=== PATIENT | male | born 1945 | race Caucasian/White ===

== ENCOUNTER 2016-10-09 05:40 | Observation (INO) | payer OTHER ==
[~2016-10-09] VITALS: Ht 190.5 cm; Wt 90.7 kg
[2016-10-09] VITALS (7 sets, daily range): BP systolic 152–160; BP diastolic 66–87
--- NOTE | ~2016-10-09 | O ---
[facility] [address] OPERATIVE REPORT Name: ALYSSA DAVE Room #: 536-P [facility] Tera Cardenas#: [id number] Admission: 10/09/16 Attend Phys: Rashard Parrish MD Discharge: 10/10/16 Date of : 41 Report #: [id number] THIS REPORT FOR: //name// CC: Rashard Calderón MD PREOPERATIVE DIAGNOSIS: Symptomatic right inguinal hernia. POSTOPERATIVE DIAGNOSIS: Symptomatic right inguinal hernia, direct in nature; left direct inguinal hernia identified. PROCEDURE PERFORMED: Laparoscopic repair of bilateral inguinal hernia, properitoneal approach. SURGEON: Rashard Parrish M.D. ANESTHESIA: General anesthesia. COMPLICATIONS: None. ESTIMATED BLOOD LOSS: 5 mL. PROCEDURE NOTE: With the patient under general anesthesia, a Morales catheter was placed. IV antibiotic was administered. Abdomen was prepped and draped in sterile fashion. A 0.25% Marcaine was used to anesthetize the skin and subcutaneous tissue and trocar site. A 2 cm incision was made adjacent to the umbilicus on the right side. The anterior rectus sheath was identified. The anterior sheath was then incised transversely. The muscle was spread. The posterior sheath was then palpated. The space between the muscle and the posterior sheath was dissected bluntly inferiorly. Properitoneal space was freed with a finger. An Origin balloon trocar was then placed. CO2 was placed. I could see below the trocar, the properitoneal space and a 5 mm trocar was placed into the space. This is about 2 inches below the umbilicus. With this and cautery dissection I was able to free the rest of the properitoneal space. The inferior epigastric vessel was identified and preserved from harm. The dissection was carried to the pubic tubercle. The lateral wall on the right side was also free and a second 5 mm trocar was placed over here. The trocar was placed under visualization. Dissection was then carried out on the right side and patient had a direct defect. I then went ahead and worked on the left side since the right side had a direct defect. The left side to me did seem to have a fat that is attached to the Hesselbach triangle, which were reduced and there was a definite defect, medial to the internal ring and there is really no internal ring lateral to the epigastric vessel. The whole floor in this area was gone. This is consistent with a direct defect. No indirect sac was found going up into the cord. On the right side, dissection was then further carried out and there is a ____ direct defect, a small cord lipoma. [facility] [address] [place] [address] OPERATIVE REPORT Name: ALYSSA DAVE Room #: 536-P [facility] Tera MAkshat#: [id number] Admission: 10/09/16 Attend Phys: Rashard Parrish MD Discharge: 10/10/16 Date of : 41 Report #: [id number] reflection was identified over the cord structure and did not reduce the indirect hernia sac. The peritoneal reflection was further brought posteriorly. Both direct defect was dissected and cleaned out well. 3DMax lightweight mesh was then placed on the left. This was placed in the balloon through the Origin trocar, opened in the properitoneal space. Once this was opened and seated, this was tacked with SorbaFix. The mesh was tacked laterally to the wall, inferiorly to Blair's ligament, medially to Blair's ligament, and superiorly, medially to the rectus muscle. A right-sided large mesh was also used. This was opened up well to a slight overlap. This was tacked with SorbaFix also. There was some pneumoperitoneum and after the trocars were removed, air was evacuated from the properitoneal space. At the level of the umbilicus, the posterior sheath was identified, grasped with hemostat and peritoneum was opened releasing the pneumoperitoneum. A single 0 Vicryl [id number] stitch was placed in the posterior sheath closing it. The anterior sheath was then closed with [id number] 0 Vicryl x 2. Skin was irrigated and then closed with 5-0 PDS. Steri-Strip, Band-Aids applied. Moraels catheter was removed. The patient taken to recovery room. The patient tolerated procedure well. By: [id number] Rashard Parrish MD /nt
--- NOTE | ~2016-10-09 | EKG ---
[address] [address] ELECTROCARDIOGRAM REPORT Name: ALYSSA DAVE Room #: 536[facility]P [facility]#: [id number] Admission: 10/09/16 Attend Phys: Rashard Parrish MD Discharge: Date of : 41 Report #: [id number] THIS REPORT FOR: //name// 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 : 1945 Requested By: Rashard Parrish Order Number: [id number] MD: Ronnie Tidwell Measurements Intervals [place] Rate: 60 P: 52 MA: 216 QRS: -17 QRSD: 110 T: -6 QT: 443 QTc: 443 Interpretive Statements Sinus rhythm Borderline prolonged MA interval Consider left atrial enlargement Inferior infarct, old No previous ECG available for comparison Electronically Signed On 10-09-2016 18:19:11 CDT by Ronnie Tidwell [email or web address] <ELECTRONICALLY SIGNED> By: Ronnie Tidwell MD 10/09/16 1819 0751 0751 Ronnie Tidwell MD /NARDA
[~2016-10-09 05:40] MED LIST: ASPIR 8181 MG PO; ASPIRIN325 PO; ATORVASTATIN CA80 MG PO; B COMPLEX1 EACH PO; CALCIUM 500 +1 EAC5 PO; CENTRUM SILVER1 EAC2 PO; CINNAMON500 MG PO; HYDROCODONE-AP1 EAC6 PO; MAGNESIUM OXID400 MG PO; PLAVIX 75 MG TA75 M1 PO; TOPROL XL25 MG PO; TURMERIC500 M1 PO; VITAMIN D1000 UNI1 PO; VITAMINC500 PO
[2016-10-09 07:50] LABS: HEMATOCRIT 43.1 % (42.0-52.0)
[2016-10-10 04:44] VITALS: BP 127/57
[2016-10-10 08:20] VITALS: BP 121/49
[2016-10-10] MEDS ORDERED: PERCOCET 10-321 EACH PO (13:45)
[2016-10-10 13:58] VITALS: BP 121/49
== END 2016-10-10 14:30 | disposition home or self-care (01) ==
LOC: OR 05:40 → TBA 05:41 → OR 11:20 → 5S 12:47 → OR 13:05 → 5S 10-10 14:30
PROVIDERS: Surgery
DX: K40.20 Bilateral inguinal hernia, without obstruction or gangrene, not specified as recurrent (principal)
CPT/HCPCS: 50010; 50101; 50411; 50507; 50555; 50848; 53065; 53307; 56525; 56526; 62110; 62900; 70005

== ENCOUNTER 2018-01-06 15:55 | Inpatient (IN) | payer OTHER ==
[~2018-01-06] VITALS: Ht 190.5 cm; Wt 95.3 kg
--- NOTE | ~2018-01-06 | CATHLAB ---
[facility] [address] [place] [address] INVASIVE PROCEDURE REPORT Name: ALYSSA DAVE Room #: 349-I [facility] IN [facility]#: [id number] Admission: 01/06/18 Attend Phys: Henran Amato Discharge: Date of : 41 Date of Service: 01/07/18919 Report #: [id number] THIS REPORT FOR: //name// APPROVED REPORT Study performed: 01/07/2018 08:06:24 Patient Details Patient Status: In-Patient Room #: The patient is a 72 year-old male Event Personnel Edi Schwartz Plate Embosser, Flor Gates RN RN, Sunita Dickey RTR, Cassius Wilson David Monitor Procedures Performed Left Heart Cath Coronaries, Bypass Grafts [id number] [facility] Indication Chest pain Procedure Narrative The patient was brought urgently to the Cardiac Catheterization Laboratory and was prepped and draped in a sterile manner. The Right Groin^ was infiltrated with 1% Lidocaine subcutaneous anesthesia. A PINNACLE 6FR Sheath #[id number] sheath was inserted into the RFA^. Coronary angiography was performed using coronary diagnostic catheters. The right coronary system was accessed and visualized with a JR4 catheter. The left coronary system was accessed and visualized with a JL4 catheter. The left ventricle was accessed and visualized with a PIGTAIL catheter. Left ventricular/Aortic Valve gradient assessed via catheter pullback. Left ventriculogram was performed in 30 degree projection. Closure device was deployed with a 6 Fr MYNXGRIP 6/7F #[id number]. The patient tolerated the procedure well and there were no complications associated with the procedure. There was no hematoma. Intraoperative Conscious Sedation Sedation start time: 8.23 Case end Time: 8.49 Fentanyl 50 mcg Versed 1 mg Fluoro Time: 5.53 minutes Dose: DAP 7008. cGycm2 874 mGy [facility] [place] [address] INVASIVE PROCEDURE REPORT Name: ALYSSA DAVE Room #: 349-I [facility]#: [id number] Admission: 01/06/18 Attend Phys: Hernan Amato Discharge: Date of : 41 Date of Service: 01/07/18919 Report #: [id number] Contrast Type and Amount: Omnipaque 245 ml Coronary Angiography The patient's coronary anatomy is right dominant. [place] Artery Percent Stenosis Grafts (Complete if Previous CABG=Yes: Percent Stenosis) Saphenous vein graft to a large diagonal branch. Normal proximal and distal anastomotic sites with excellent runoff into a large vessel Saphenous vein graft to OM1 and OM-2. Minimal plaquing throughout the body of the graft with widely patent proximal and distal anastomotic sites. Mild plaquing within the inaja marginal vessels Saphenous vein graft occluded to the right coronary at its origin, chronically occluded Normal left main anastomosed to the midportion of the LAD with excellent runoff into a large mid to distal LAD Diagnostic Cath Left Main Normal left main LAD Occluded LAD and its midportion. Long, severe variable stenosis before its occlusion. Diagonal 1 Competitive filling was seen from a vein graft to the first diagonal branch Circumflex Mild plaquing in the inaja circumflex OM1 Occluded first marginal branch at its origin Right Coronary The right coronary was dominant and had been previously stented throughout its proximal and mid portions. These stents were widely patent R PDA 40-50% ostial stenosis of the posterior descending. The vessel beyond this was not especially large. RPLV Minimal plaquing in a large posterior lateral branch Left Ventriculography The left ventricle is normal in size with normal contractility. The left ventricular ejection fraction is estimated to be 60-65%. Left ventricular wall motion abnormalities are present. There is no mitral insufficiency. Normal global systolic function with minimal inferior wall hypokinesis. Hemodynamics The aortic pressure is 171/66 mmHg with a mean of 98 mmHg. The left ventricular pressure is 185/3 mmHg with a mean of mmHg. The left ventricular end diastolic pressure is 28 mmHg. Conclusion [facility] [address] [place] [address] INVASIVE PROCEDURE REPORT Name: ALYSSA DAVE Room #: 349-I [facility] IN M.R.#: [id number] Admission: 01/06/18 Attend Phys: Hernan Amato Discharge: Date of : 41 Date of Service: 01/07/18 0920 Report #: [id number] 1. Normal global left ventricular systolic function with minimal inferior wall hypokinesis. Ejection fraction 60-65%. 2. Severe multivessel coronary artery disease. 3. Patent left internal mammary to the LAD 4. Patent saphenous vein graft to OM1 and OM 2 5. Patent vein graft to the first diagonal branch 6. Occluded vein graft to the right coronary. Widely patent inaja right coronary artery proximal and mid vessel stents. Recommendations [facility] Medical Therapy <ELECTRONICALLY SIGNED> By: Edi Schwartz MD, [facility] 01/07/18919 9 9 Edi Schwartz MD, FAC /INF
--- NOTE | ~2018-01-06 | EKG ---
[place] [address] [facility] [place] [address] ELECTROCARDIOGRAM REPORT Name: ALYSSA DAVE Room #: 349-I [facility] IN [facility].#: [id number] Admission: 01/06/18 Attend Phys: Hernan Hughes Discharge: Date of : 43 Report #: [id number] THIS REPORT FOR: //name// 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: [facility] : 1945 Requested By: Patricia Ivy Order Number: [id number] MD: Edi Schwartz Measurements Intervals [place] Rate: 48 P: 34 HI: 238 QRS: 7 QRSD: 120 T: 0 QT: 462 QTc: 413 Interpretive Statements Sinus bradycardia Prolonged HI interval Left ventricular hypertrophy Possible inferior infarct, old Compared to ECG 10/09/2016 07:51:33 Sinus bradycardia is now present Electronically Signed On 01-07-2018 12:53:01 CDT by Edi Schwartz [email or web address] <ELECTRONICALLY SIGNED> By: Edi Schwartz MD, [facility] 01/07/18 1253 1554 1554 Edi Schwartz MD, [facility] /EPI
[~2018-01-06 15:55] MED LIST changes: +PERCOCET 10-321 EACH PO
[2018-01-06 17:08] LABS: HEMATOCRIT 37.2 % (42.0-52.0); HEMOGLOBIN 12.8 gm/dL (14.0-18.0); MCHC 34.5 g/dL (28.0-37.0); MCV 95.7 fL (80.0-100.0); PLATELET COUNT 180 thou/uL (150-400); RBC 3.89 mil/uL (4.50-6.00); RDW 13.3 % (10.5-14.5); WBC 6.3 thou/uL (4.0-11.0)
[2018-01-06 17:12] LABS: ANION GAP 7 mmol/L (7-16); BUN 14 mg/dL (7-18); CALCIUM 8.9 mg/dL (8.5-10.1); CHLORIDE 106 mmol/L (98-107); CO2 25 mmol/L (21-32); GLUCOSE 145 mg/dL (74-106); SODIUM 138 mmol/L (136-145)
[2018-01-06 17:22] LABS: TROPONIN-I < 0.04 ng/mL (<0.06)
[2018-01-06 17:27] LABS: ABSOLUTE NEUTROPHILS 3.3 thou/uL (1.4-8.2)
[2018-01-06 17:28] LABS: ANISOCYTOSIS 1+
[2018-01-06 19:20] VITALS: BP 155/73
[2018-01-06 19:34] VITALS: BP 169/71
[2018-01-06 20:00] VITALS: BP 186/79
[2018-01-06 21:48] VITALS: BP 153/71
[2018-01-06 23:20] VITALS: BP 142/65
[2018-01-07] VITALS (14 sets, daily range): BP systolic 142–174; BP diastolic 71–91
[2018-01-07 05:58] LABS: ALBUMIN 3.4 g/dL (3.4-5.0); ANION GAP 6 mmol/L (7-16); BUN 12 mg/dL (7-18); CALCIUM 8.6 mg/dL (8.5-10.1); CHLORIDE 109 mmol/L (98-107); CO2 25 mmol/L (21-32); CREATININE 0.9 mg/dL (0.7-1.3); GLUCOSE 111 mg/dL (74-106); PHOSPHORUS 3.9 mg/dL (2.5-4.9); POTASSIUM 4.2 mmol/L (3.5-5.1); SODIUM 140 mmol/L (136-145); TROPONIN-I < 0.04 ng/mL (<0.06)
[2018-01-07 08:19] LABS: CHOLESTEROL 93 mg/dL (<200); HDL CHOLESTEROL 33 mg/dL (>40); LDL CHOLESTEROL 43 mg/dL (<100); TC:HDL 2.8 Ratio (Not establshd); TRIGLYCERIDE 85 mg/dL (<150); VLDL 17 mg/dL (<40)
[2018-01-08 00:20] VITALS: BP 139/70
[2018-01-08 03:25] VITALS: BP 152/76
[2018-01-08 06:58] VITALS: BP 142/64
[2018-01-08] MEDS ORDERED: CARAFATE 1 GM TA1 G1 PO (09:42)
[2018-01-08] MEDS ORDERED: PANTOPRAZOLE SO40 M1 PO (09:42)
[2018-01-08 09:54] VITALS: BP 142/64
== END 2018-01-08 10:48 | disposition home or self-care (01) | DRG 287 ==
LOC: ER 15:55 → 3W 18:43 → EROBS 18:43 → 3W 19:35
PROVIDERS: Emergency Medicine; Hospitalist; Internal Medicine
PROC: B2131ZZ Fluoroscopy of Multiple Coronary Artery Bypass Grafts using Low Osmolar Contrast (ICD-10-PCS; principal; 2018-01-07)
PROC: B2111ZZ Fluoroscopy of Multiple Coronary Arteries using Low Osmolar Contrast (ICD-10-PCS; principal; 2018-01-07)
PROC: 4A023N7 Measurement of Cardiac Sampling and Pressure, Left Heart, Percutaneous Approach (ICD-10-PCS; principal; 2018-01-07)
PROC: B2151ZZ Fluoroscopy of Left Heart using Low Osmolar Contrast (ICD-10-PCS; principal; 2018-01-07)
DX: I25.10 Atherosclerotic heart disease of native coronary artery without angina pectoris (principal); I10 Essential (primary) hypertension; E78.00 Pure hypercholesterolemia, unspecified; I73.9 Peripheral vascular disease, unspecified; E78.5 Hyperlipidemia, unspecified; I35.0 Nonrheumatic aortic (valve) stenosis; I65.29 Occlusion and stenosis of unspecified carotid artery; K21.9 Gastro-esophageal reflux disease without esophagitis; K44.9 Diaphragmatic hernia without obstruction or gangrene; Z95.1 Presence of aortocoronary bypass graft; Z98.42 Cataract extraction status, left eye; Z95.5 Presence of coronary angioplasty implant and graft; Z98.41 Cataract extraction status, right eye; Z87.891 Personal history of nicotine dependence; Z79.82 Long term (current) use of aspirin; Z79.899 Other long term (current) drug therapy; Z82.49 Family history of ischemic heart disease and other diseases of the circulatory system; I25.2 Old myocardial infarction
CPT/HCPCS: 10879

== ENCOUNTER → 2019-06-12 | Outpatient (CLI) | payer OTHER ==
[~2019-06-12] MED LIST changes: +CARAFATE 1 GM TA1 G1 PO; +PANTOPRAZOLE SO40 M1 PO
== END ==
LOC: MRI 10:14
DX: M47.816 Spondylosis without myelopathy or radiculopathy, lumbar region (principal); M48.061 Spinal stenosis, lumbar region without neurogenic claudication

== ENCOUNTER → 2019-06-30 | Outpatient (CLI) | payer OTHER ==
[~2019-06-30] VITALS: Ht 185.4 cm; Wt 88.5 kg
[2019-06-30 13:54] VITALS: BP 140/71
--- NOTE | 2019-06-30 14:46 | NUR ---
Pain Clinic Assessment: 1. History of Osteoarthritis: History of Rheumatoid Arthritis: 2. Height: 6 ft. 1 in. 185.4 cm. Weight: 195.0 lb. oz. 88.452 kg. Patient's BMI: 25.7 3. Vital Signs: BP: 140/71 Pulse: 60 Resp: 14 Temp: 02 Sat: 97 ECG Mon: 4. Pain Intensity: 1 5. Fall Risk: Dizziness: N Needs help standing or walking: N Fallen in the last 3 months: N Fall risk comments: 6. Patient on Blood Thinner: 7. History of Hypertension: N 8. Opioid Therapy greater than 6 weeks: Opiate Contract Signed: 9. Risk Assessment Tool Provided: 10. Functional Assessment Tool: 11. Recreational Drug Use: Never Drug Type: Tobacco Use: Unknown if Ever Smoked Tobacco Type: Amount or Packs/day: How Many Years: Alcohol Use: No Frequency: Quant:
--- NOTE | 2019-07-18 14:24 | HPC ---
[facility] [address] [place] [address] PAIN MANAGEMENT CONSULTATION Name: ALYSSA DAVE Room #: REG [facility] Theresa#: [id number] Admission: 06/30/19 Attend Phys: Hannah Braxton MD Discharge: Date of : 43 Report #: [id number] THIS REPORT FOR: //name// CC: Hannah Calderón DATE OF SERVICE: 06/30/2019 CHIEF COMPLAINT: Lumbar pain HISTORY: The patient is a 74-year-old gentleman who has been referred to the Pain Clinic for evaluation. The patient has been having pain for about 40 years. Over the past 5-6 years, the pain has become sharp and more problematic. Sometimes the pain is so intense it almost makes him sick. Pain is most problematic. He is unable to sleep on his left side because of the intensity and discomfort. 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 He is no longer able to bowl because of the pain. He is no longer able to golf secondary to the pain. He does continue to work and works 3 days a week. He works for [employer]. 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 He describes this pain today as a 1/10, it can rise to a level of 10/10. He describes the pain when it is present is steady; it is sharp, shooting, and aching. It involves the left lower back area. He has not had surgery on his back. ALLERGIES: No known drug allergies. CURRENT MEDICATIONS: Pantoprazole 40 mg, Carafate 1 gram, oxycodone 10/325 one p.o. q. 4 hours p.r.n., turmeric root extract, calcium/vitamin D, cinnamon bark 500 mg, vitamin with minerals, Centrum Silver, vitamin B complex, magnesium oxide 400 mg, ascorbic acid 500 mg, vitamin D 1000 units, metoprolol XL 25 mg, aspirin 81 mg, Lipitor 80 mg. PAST MEDICAL HISTORY: 1. Heart disease. 2. Stomach problems. 3. Hypertension. 4. Ulcers. 5. Hypercholesterolemia. 6. Coronary artery disease, status post myocardial infarction, coronary artery bypass grafting and stenting. 7. Peripheral vascular disease. SOCIAL HISTORY: He is retired. 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 REVIEW OF SYSTEMS: Generally good health. Heart trouble, peptic ulcer, [facility] [address] [place] [address] PAIN MANAGEMENT CONSULTATION Name: ALYSSA DAVE Room #: REG [facility]#: [id number] Admission: 06/30/19 Attend Phys: Hannah Braxton MD Discharge: Date of : 41 Report #: [id number] frequent urination and dribbling. PAIN CLINIC AND PQRS: 1. History of osteoarthritis. The patient is not being treated for osteoarthritis. He is not being treated for rheumatoid arthritis. 2. Height 6 feet 1 inch, weight 195 pounds, BMI is 25.9. 3. Vital signs: Blood pressure 140/71, pulse 60, respiratory rate 14, room air saturation 97%. 4. Pain intensity: 07/28 5. Fall history: The patient has not fallen in the last 3 months. 6. Blood thinner: The patient is not on a blood thinning medication. 7. Hypertension: The patient is being treated for hypertension. 8. Opioids greater than 6 weeks. 9. Risk assessment tool: Low for opioid use. 10. Functional assessment tool: 11. Recreational drugs: The patient denies. 12. Tobacco: The patient does not smoke. 13. Alcohol. The patient denies use of alcoholic beverages. PHYSICAL EXAMINATION: GENERAL: The patient is a well-developed, well-nourished, white male. Appears his stated age. He is alert and oriented x 3. His affect is appropriate. Speech is fluent. HEENT: Normocephalic, atraumatic. Extraocular eye muscles intact. Sclerae nonicteric. Mucous membranes are moist. NECK: Without adenopathy or JVD. HEART: Regular. ABDOMEN: Nontender. MUSCULOSKELETAL: Upper extremity muscle strength is judged to be 5-/5 for the major muscle groups in the upper extremity. Deep tendon reflexes are trace at the biceps bilaterally. The patient has some pain and discomfort in the lower portion of his back in the area of the left posterior superior iliac spine area. He has some pain and discomfort in his knees. He states that he has some arthritic pain in his knees from football injuries. The patient does have pain that sometimes radiates down into the left posterior portion of his leg. DIAGNOSTIC DATA: MRI of the lumbar spine without contrast dated 06/12/2019 shows: 1. At L4-L5, grade 1 retrolisthesis L4 on L5. Vertebral heights are maintained. The marrow signal was essentially normal. Severe height disk loss at L4-L5 with extensive endplate sclerotic changes. 2. At L3-L4, severe disk height loss is noted. The conus medullaris terminates at L1. 3. L2-L3. Broad-based posterior disk bulge, bilateral facet hypertrophy and ligamentum flavum hypertrophy. No significant central canal stenosis. 4. L3-L4. Posterior disk osteophyte complex, bilateral facet hypertrophy and [facility] [address] [place] [address] PAIN MANAGEMENT CONSULTATION Name: ALYSSA DAVE Room #: REG [facility]#: [id number] Admission: 06/30/19 Attend Phys: Hannah Braxton MD Discharge: Date of : 41 Report #: [id number] ligamentum flavum hypertrophy resulting in no significant central canal stenosis. 5. Severe left and moderate right neural foraminal narrowing at L5-S1, severe bilateral facet hypertrophy and ligamentum flavum hypertrophy. IMPRESSION: 1. History in the past of left lumbar radicular pain. 2. Heart disease. 3. Stomach problems. 4. Hypertension. 5. Ulcers. 6. Hypercholesterolemia. 7. Coronary artery disease, status post myocardial infarction, coronary artery bypass grafting and stenting. 8. Peripheral vascular disease. RECOMMENDATIONS: We discussed treatment options with the patient. Risks and benefits of an epidural steroid injection were discussed. Possible complications of the procedure were reviewed. A model was used to indicate the area of probable pathology. The patient, at this juncture, rates his pain as a 1/10. We will consider pursuing an epidural steroid injection in the future should his pain become problematic. He will return to the Pain Clinic, at which time possibility of an epidural steroid injection will be considered. The patient does have some severe narrowing at the L5-S1 area. We would consider an epidural steroid injection in the future should he need it. He does have pain and discomfort in the low back area with a trigger point in the left posterior area. Palpation in this area does cause a reproduction of the patient's pain. We will proceed with a trigger point injection to the affected area today. Risks and benefits of a trigger point injection were discussed. They include infection, worsening of pain, no improvement in pain, nerve damage, bleeding, and the patient elects to proceed. PROCEDURE NOTE: The patient was taken to the procedure area. He was then assisted in getting on examination table. His back was sterilely prepped with Betadine solution. The trigger point was noted in the left posterior superior iliac spine area near the gluteus kendrick and the latissimus dorsi. Palpation did reproduce the discomfort. A 25-gauge needle was then advanced into this area. A total of 5 mL of 0.5% bupivacaine and 80 mg triamcinolone was injected. The patient's pain decreased to 0 at the time of discharge. He will follow up in the future as needed. [place] [id number] PAIN MANAGEMENT CONSULTATION Name: FAROOQ DAVEPH Yvonne Room #: REG [facility]#: [id number] Admission: 06/30/19 Attend Phys: Hannah Braxton MD Discharge: Date of : 41 Report #: [id number] We would like to thank you for letting us participate in his care. We hope he continues to improve. <ELECTRONICALLY SIGNED> By: Hannah Braxton MD 07/18/19 1424 2321 0809 Hannah Braxton MD /nt
== END | disposition home or self-care (01) ==
LOC: PAIN 07:37
DX: M79.18 Myalgia, other site (principal); I10 Essential (primary) hypertension; E78.00 Pure hypercholesterolemia, unspecified; I25.10 Atherosclerotic heart disease of native coronary artery without angina pectoris; I25.2 Old myocardial infarction; I73.9 Peripheral vascular disease, unspecified; Z79.899 Other long term (current) drug therapy; Z95.5 Presence of coronary angioplasty implant and graft

== ENCOUNTER 2019-10-24 09:28 | Inpatient (IN) | payer OTHER ==
[~2019-10-24] VITALS: Ht 185.4 cm; Wt 85.1 kg
[2019-10-24 10:22] LABS: WBC 9.4 thou/uL (4.0-11.0)
[2019-10-24 10:23] LABS: ABSOLUTE NEUTROPHILS 5.5 thou/uL (1.4-8.2); BASOPHILS 1.1 % (0.0-2.0); EOSINOPHILS 2.7 % (0.0-3.0); HEMATOCRIT 37.8 % (42.0-52.0); LYMPHOCYTES 23.8 % (24.0-44.0); MCH 33.2 pg (26.0-34.0); MCHC 34.4 g/dL (28.0-37.0); MCV 96.6 fL (80.0-100.0); POLYS 61.4 % (36.0-66.0); RBC 3.91 mil/uL (4.50-6.00); RDW 13.3 % (10.5-14.5)
[2019-10-24 10:32] LABS: ANION GAP 11 mmol/L (7-16); BUN 11 mg/dL (7-18); CALCIUM 9.2 mg/dL (8.5-10.1); CHLORIDE 101 mmol/L (98-107); CO2 22 mmol/L (21-32); CREATININE 0.8 mg/dL (0.7-1.3); GLUCOSE 107 mg/dL (74-106); SODIUM 134 mmol/L (136-145)
[2019-10-24 10:33] LABS: POTASSIUM 4.6 mmol/L (3.5-5.1)
[2019-10-24 10:41] LABS: TROPONIN-I <0.06 ng/mL (<0.06)
[2019-10-24] MEDS ORDERED: FINASTERIDE5 MG PO (10:59)
[2019-10-24 11:13] LABS: PLATELET COUNT 227 thou/uL (150-400); PLATELET ESTIMATE NORMAL
[2019-10-24 13:13] VITALS: BP 152/64
[2019-10-24 13:41] VITALS: BP 145/84
[2019-10-24 13:55] VITALS: BP 147/106
--- NOTE | 2019-10-24 16:42 | NUR ---
PT ADMITED FROM ER. ADMISSION HX AND ASSESSMENT COMPLETED. PT ALERT AND ORIENTED. VSS. SB ON TELE. DR. BANUELOS AWARE. PT ORIENTED TO THE ROOM AND THE CALL LIGHT SYSTEM. PT VERBERLISED UNDERSTANDING. WILL CONTINUE TO MONITOR.
[2019-10-25 00:15] VITALS: BP 128/64
[2019-10-25 04:00] VITALS: BP 138/67
--- NOTE | 2019-10-25 04:55 | NUR ---
Pt. stated he slept really well last night. Kept NPO since MN pending procedure/test. He reported chest pressure he rated as 5/10 yesterday with shortness of breath but none this am. SB-SR with first degree AV blk and PVC's per tele. Up ad kvng in room with steady gait. SCDs in place for DVT prophylaxis. No other concerns this am.
[2019-10-25 05:33] LABS: ABSOLUTE NEUTROPHILS 4.2 thou/uL (1.4-8.2); BASOPHILS 1.1 % (0.0-2.0); EOSINOPHILS 3.4 % (0.0-3.0); HEMATOCRIT 36.2 % (42.0-52.0); HEMOGLOBIN 12.6 gm/dL (14.0-18.0); LYMPHOCYTES 25.5 % (24.0-44.0); MCH 33.2 pg (26.0-34.0); MCHC 34.7 g/dL (28.0-37.0); MCV 95.8 fL (80.0-100.0); MONOCYTES 10.7 % (1.0-8.0); PLATELET COUNT 249 thou/uL (150-400); POLYS 59.3 % (36.0-66.0); RBC 3.78 mil/uL (4.50-6.00); RDW 13.2 % (10.5-14.5); WBC 7.1 thou/uL (4.0-11.0)
[2019-10-25 05:58] LABS: CALCIUM 8.9 mg/dL (8.5-10.1); CREATININE 1.2 mg/dL (0.7-1.3); MAGNESIUM 1.9 mg/dL (1.8-2.4)
[2019-10-25 08:01] VITALS: BP 147/67
[2019-10-25 11:20] VITALS: BP 129/60
[2019-10-25 14:05] VITALS: BP 129/60
--- NOTE | 2019-10-25 15:00 | NUR ---
ASSESSMENT CHARTED. PT ALERT AND ORIENTED. VSS. DENIED HAVING CHEST PAIN. ORDERS GIVEN TO DISCHARGE PT TO HOME. DISCHARGE INSTRUCTIONS GIVEN TO PT. PT VERBERLISED UNDERSTANDING.
--- NOTE | 2019-10-27 12:25 | EKG ---
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 Electronically Signed On 10-24-2019 16:23:08 CDT by Edi Schwartz [email or web address] <ELECTRONICALLY SIGNED> By: Edi Schwartz MD, [facility] 10/24/19 1623 0937 0937 Edi Schwartz MD, [facility] /EPI
== END 2019-10-25 15:03 | disposition home or self-care (01) | DRG 309 ==
LOC: ER 09:28 → 2N 13:10 → EROBS 13:10 → 2N 13:43
PROVIDERS: Emergency Medicine; Nurse Practitioner; ADMIT Internal Medicine
DX: I44.0 Atrioventricular block, first degree (principal); I25.810 Atherosclerosis of coronary artery bypass graft(s) without angina pectoris; I10 Essential (primary) hypertension; K21.9 Gastro-esophageal reflux disease without esophagitis; R63.4 Abnormal weight loss; R91.1 Solitary pulmonary nodule; N40.0 Benign prostatic hyperplasia without lower urinary tract symptoms; M81.0 Age-related osteoporosis without current pathological fracture; G47.00 Insomnia, unspecified; I35.0 Nonrheumatic aortic (valve) stenosis; E78.00 Pure hypercholesterolemia, unspecified; I73.9 Peripheral vascular disease, unspecified; E78.5 Hyperlipidemia, unspecified; G47.33 Obstructive sleep apnea (adult) (pediatric); Z98.42 Cataract extraction status, left eye; Z95.5 Presence of coronary angioplasty implant and graft; Z79.899 Other long term (current) drug therapy; Z79.82 Long term (current) use of aspirin; Z87.891 Personal history of nicotine dependence; Z98.41 Cataract extraction status, right eye; Z95.1 Presence of aortocoronary bypass graft; Z68.24 Body mass index [BMI] 24.0-24.9, adult; Z82.49 Family history of ischemic heart disease and other diseases of the circulatory system
CPT/HCPCS: 10081

== ENCOUNTER → 2019-11-02 | Outpatient (CLI) | payer OTHER ==
[~2019-11-02] MED LIST changes: +FINASTERIDE5 MG PO
== END ==
LOC: SJCVCIMAG 12:25
DX: I25.10 Atherosclerotic heart disease of native coronary artery without angina pectoris (principal); I35.0 Nonrheumatic aortic (valve) stenosis; I10 Essential (primary) hypertension; E78.00 Pure hypercholesterolemia, unspecified; E78.5 Hyperlipidemia, unspecified; I73.9 Peripheral vascular disease, unspecified; Z87.891 Personal history of nicotine dependence; Z95.1 Presence of aortocoronary bypass graft; Z79.899 Other long term (current) drug therapy

== ENCOUNTER → 2020-02-15 | Outpatient (CLI) | payer OTHER ==
[~2020-02-15] MED LIST changes: +HYDROCHLOROTHIA25 M1 PO; +IMDUR 30 MG TAB30 M1 PO; +METOPROLOL SUCC25 M1 PO; +PRINIVIL20 M1 PO
== END ==
LOC: SJCVC 14:29
PROVIDERS: ATTEND Internal Medicine Cardiovascular Disease
DX: I25.10 Atherosclerotic heart disease of native coronary artery without angina pectoris (principal); R94.31 Abnormal electrocardiogram [ECG] [EKG]; I44.0 Atrioventricular block, first degree; R00.1 Bradycardia, unspecified; I10 Essential (primary) hypertension; E78.5 Hyperlipidemia, unspecified; Z79.899 Other long term (current) drug therapy; Z87.891 Personal history of nicotine dependence

== ENCOUNTER → 2020-02-21 | Outpatient (CLI) | payer OTHER ==
[~2020-02-21] VITALS: Ht 185.4 cm; Wt 81.6 kg
[2020-02-21 07:17] VITALS: BP 120/65
[2020-02-21 07:38] LABS: HEMATOCRIT 38.9 % (42.0-52.0); HEMOGLOBIN 13.3 gm/dL (14.0-18.0); MCH 33.1 pg (26.0-34.0); MCHC 34.1 g/dL (28.0-37.0); RBC 4.01 mil/uL (4.50-6.00); RDW 13.5 % (10.5-14.5); WBC 8.2 thou/uL (4.0-11.0)
[2020-02-21 07:51] LABS: CALCIUM 9.2 mg/dL (8.5-10.1); CREATININE 1.1 mg/dL (0.7-1.3); POTASSIUM 3.6 mmol/L (3.5-5.1)
--- NOTE | 2020-02-21 14:32 | CATHLAB ---
[facility] [place] [address] INVASIVE PROCEDURE REPORT Name: ALYSSA DAVE Room #: REG ELKIN Perry.#: [id number] Admission: 02/21/20 Attend Phys: Ronnie Tidwell MD Discharge: Date of : 41 Report #: [id number] REPORT FOR: cc: Sanchez Calderón Steven F. DO Park, Jin S. MD ~ APPROVED REPORT Study performed: 02/21/2020 07:57:10 Patient Details Patient Status: Out-Patient Room #: The patient is a 74 year-old male Event Personnel Ronnie Tidwell [employer]at [employer] Maker Helper, Yenifer Pina RN RN, Sunita Dickey RTR, Darien Wilson Sherra RTR Monitor Procedures Performed Art Access - R femoral artery* Left Heart Cath Coronaries, Bypass Grafts [id number] [id number] Initial Mod Sed Same Phys/QHP Gr5y [id number] Mod Sed Same Phys/QHP Ea 109158 Hemostasis with Manual pressure Indication Dyspnea, Chest pain Risk Factors Hypercholesterolemia, Coronary Artery DiseaseHypertension Previous Procedures/Diagnoses Previous CABGPrevious PCI, Previous GA Procedure Narrative The Right Groin^ was infiltrated with 1% Lidocaine subcutaneous anesthesia. A PINNACLE 4FR Sheath #[id number] sheath was inserted into the RFA^. Coronary angiography was performed using coronary diagnostic catheters. The right coronary system was accessed and visualized with a JR4 catheter. The left coronary system was accessed and visualized with a JL4 catheter. The left ventricle was accessed and visualized with a PIGTAIL catheter. Left ventricular/Aortic Valve gradient assessed via catheter pullback. Left ventriculogram was performed in 30 degree projection. Hemostasis was obtained with manual pressure following sheath removal without any complications. [facility] [address] [place] [address] INVASIVE PROCEDURE REPORT Name: ALYSSA DAVE Room #: REG [facility]#: [id number] Admission: 02/21/20 Attend Phys: Ronnie Tidwell MD Discharge: Date of : 41 Report #: [id number] The patient tolerated the procedure well and there were no complications associated with the procedure. There was no hematoma. Intraoperative Conscious Sedation Sedation start time: 811 Case end Time: 905 Fentanyl 50 mcg Versed 1 mg Fluoro Time: 8.30 minutes Dose: DAP 7200.00 cGycm2 1687 mGy Contrast Type and Amount: Visipaque 90 ml Coronary Angiography The patient's coronary anatomy is right dominant. [place] Artery Percent Stenosis Left Main: % Prox LAD: 90 % Mid/Distal LAD: % Circumflex: % RCA: % Ramus: % Diagnostic Cath LAD The LAD is a moderate-sized caliber vessel, traverses the anterior wall and wraps around the apex. There is a patent VANEGAS graft with a end-to-side anastomosis to the mid LAD. After the anastomosis, there is both retrograde and antegrade flow in the [place] LAD, with no flow-limiting stenoses. Diagonal 1 There is a patent SVG with an end-to-side anastomosis to the first diagonal artery. OM1 There is a patent sequential SVG to both branches of the first obtuse marginal artery. OM2 There is a small caliber vessel with an ostial stenosis. Right Coronary The RCA is a dominant vessel. There are multiple overlapping stents in the proximal and mid segments. There is mild restenosis. R PDA This is a small to moderate-sized caliber vessel with a severe 80% ostial stenosis. This is unchanged from prior procedures. RPLV This is a moderate-sized caliber vessel, with no flow-limiting lesions. Left Ventriculography The left ventricle is normal in size with normal contractility. The left ventricular ejection fraction is estimated to be 50%. Left ventricular wall motion abnormalities are present. There is focal hypokinesis in the mid inferior segment. [facility] [address] [place] [address] INVASIVE PROCEDURE REPORT Name: ALYSSA DAVE Room #: REG [facility]#: [id number] Admission: 02/21/20 Attend Phys: Ronnie Tidwell MD Discharge: Date of : 41 Report #: [id number] Hemodynamics The aortic pressure is 140/62 mmHg with a mean of 90 mmHg. The left ventricular pressure is 136/6 mmHg with a mean of mmHg. The left ventricular end diastolic pressure is 12 mmHg. Conclusion 1. There is a patent VANEGAS graft to the LAD. 2. There is a patent SVG to the first diagonal artery. 3. There is a patent sequential SVG to both branches of the first obtuse marginal artery. 4. There are patent stents in the [place] RCA with mild restenosis. 5. There is a severe stenosis in a small to moderate size PDA, unchanged from prior procedures. Recommend medical therapy. 6. There is normal LV systolic function, with focal hypokinesis of the mid inferior segment. 7. Recommend guideline directed medical therapy. <ELECTRONICALLY SIGNED> By: Ronnie Tidwell MD 02/21/20 1432 1432 1432 Ronnie Tidwell MD /INF
== END | disposition home or self-care (01) ==
LOC: CATH 06:43
PROVIDERS: ATTEND Internal Medicine Cardiovascular Disease
DX: R07.9 Chest pain, unspecified (principal); R06.00 Dyspnea, unspecified; I25.10 Atherosclerotic heart disease of native coronary artery without angina pectoris; I10 Essential (primary) hypertension; E78.00 Pure hypercholesterolemia, unspecified; G47.30 Sleep apnea, unspecified; K21.9 Gastro-esophageal reflux disease without esophagitis; Z95.1 Presence of aortocoronary bypass graft; Z98.890 Other specified postprocedural states; Z79.899 Other long term (current) drug therapy; Z87.891 Personal history of nicotine dependence; Z98.41 Cataract extraction status, right eye; Z98.42 Cataract extraction status, left eye

== ENCOUNTER → 2020-02-28 | Outpatient (CLI) | payer OTHER | LOC: CAT 10:53 | PROVIDERS: ATTEND Neuromusculoskeletal Medicine & OMM | DX: J98.4 Other disorders of lung (principal); J84.10 Pulmonary fibrosis, unspecified; I25.10 Atherosclerotic heart disease of native coronary artery without angina pectoris; D71 Functional disorders of polymorphonuclear neutrophils ==

== ENCOUNTER → 2020-03-15 | Outpatient (CLI) | payer OTHER | LOC: SJCVC 15:18 | PROVIDERS: ATTEND Internal Medicine Cardiovascular Disease | DX: I25.10 Atherosclerotic heart disease of native coronary artery without angina pectoris (principal); R94.31 Abnormal electrocardiogram [ECG] [EKG]; R00.1 Bradycardia, unspecified; I10 Essential (primary) hypertension; E78.5 Hyperlipidemia, unspecified; Z95.1 Presence of aortocoronary bypass graft; Z79.899 Other long term (current) drug therapy; Z87.891 Personal history of nicotine dependence ==

== ENCOUNTER → 2020-04-11 | Outpatient (CLI) | payer OTHER | LOC: SJCVCIMAG 08:17 | PROVIDERS: ATTEND Internal Medicine Cardiovascular Disease | DX: I08.8 Other rheumatic multiple valve diseases (principal); R94.31 Abnormal electrocardiogram [ECG] [EKG]; I11.9 Hypertensive heart disease without heart failure; I25.10 Atherosclerotic heart disease of native coronary artery without angina pectoris; E78.5 Hyperlipidemia, unspecified; Z79.899 Other long term (current) drug therapy; Z95.1 Presence of aortocoronary bypass graft; Z87.891 Personal history of nicotine dependence ==

== ENCOUNTER → 2020-07-16 | Outpatient (CLI) | payer OTHER | LOC: CAT 09:01 | PROVIDERS: ATTEND Neuromusculoskeletal Medicine & OMM | DX: J84.10 Pulmonary fibrosis, unspecified (principal); R91.1 Solitary pulmonary nodule; I25.10 Atherosclerotic heart disease of native coronary artery without angina pectoris; M25.78 Osteophyte, vertebrae; J98.4 Other disorders of lung ==

== ENCOUNTER → 2020-11-27 | Outpatient (CLI) | payer OTHER | LOC: CAT 08:53 | PROVIDERS: ATTEND Internal Medicine Pulmonary Disease | DX: R91.1 Solitary pulmonary nodule (principal); R91.8 Other nonspecific abnormal finding of lung field; J84.10 Pulmonary fibrosis, unspecified; R06.02 Shortness of breath; I25.10 Atherosclerotic heart disease of native coronary artery without angina pectoris; I10 Essential (primary) hypertension; Z87.891 Personal history of nicotine dependence; Z95.1 Presence of aortocoronary bypass graft ==

== ENCOUNTER → 2021-08-21 | Outpatient (CLI) | payer MEDICARE | LOC: SJCVC 10:33 | PROVIDERS: ATTEND Internal Medicine Cardiovascular Disease | DX: R94.31 Abnormal electrocardiogram [ECG] [EKG] (principal); I44.0 Atrioventricular block, first degree; I45.4 Nonspecific intraventricular block; I49.1 Atrial premature depolarization; I25.10 Atherosclerotic heart disease of native coronary artery without angina pectoris; I35.0 Nonrheumatic aortic (valve) stenosis; I10 Essential (primary) hypertension; E78.5 Hyperlipidemia, unspecified; R60.9 Edema, unspecified; R55 Syncope and collapse; K21.9 Gastro-esophageal reflux disease without esophagitis; E78.00 Pure hypercholesterolemia, unspecified; G47.30 Sleep apnea, unspecified; Z79.82 Long term (current) use of aspirin; Z79.899 Other long term (current) drug therapy; Z87.891 Personal history of nicotine dependence; Z95.818 Presence of other cardiac implants and grafts; Z95.1 Presence of aortocoronary bypass graft; Z82.49 Family history of ischemic heart disease and other diseases of the circulatory system ==

== ENCOUNTER → 2021-09-11 | Outpatient (CLI) | payer BC | LOC: SJCVCIMAG 07:45 | PROVIDERS: ATTEND Internal Medicine Cardiovascular Disease | DX: I65.23 Occlusion and stenosis of bilateral carotid arteries (principal); I25.10 Atherosclerotic heart disease of native coronary artery without angina pectoris; I10 Essential (primary) hypertension; K21.9 Gastro-esophageal reflux disease without esophagitis; G47.30 Sleep apnea, unspecified; E78.00 Pure hypercholesterolemia, unspecified; Z95.818 Presence of other cardiac implants and grafts; Z95.1 Presence of aortocoronary bypass graft; Z87.891 Personal history of nicotine dependence; Z82.49 Family history of ischemic heart disease and other diseases of the circulatory system; Z79.82 Long term (current) use of aspirin; Z79.899 Other long term (current) drug therapy ==